=== PATIENT | male | born 2005 | race Caucasian/White ===

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

== ENCOUNTER 2024-11-10 08:22 | Outpatient (CLI) | payer OTHER, SELFPAY ==
--- NOTE | 2024-11-10 08:42 | US_ITS ---
PROCEDURE: NEEDLE PLACEMENT 11/10/2024 REASON FOR EXAM: Clinical concern for right acetabular labral tear, residual following prior injury. TECHNIQUE: Ultrasound-guided pre MRI right hip joint injection COMPARISON: Right hip and pelvis study 10/31/2024 FINDINGS: Procedure: Following informed consent, and using standard sterile technique, an ultrasound- guided pre MRI right hip joint injection was performed via an anterior approach. 2% lidocaine local anesthesia was followed by placement a 22 gauge spinal needle into the hip joint under sonographic guidance. Approximately 20 mL fluid consisting of 5 mL 1% lidocaine, 5 mL normal saline, 10 mL dilute Clariscan, was injected under sonographic guidance. No complication was encountered, in the patient left the department for MRI without significant complaint. US/Needle Placement IMPRESSION: Successful ultrasound-guided right hip joint pre MRI injection. MRI pending. Reading Location: [place] [id number]
--- OUTSIDE RECORDS SUMMARY | 2024-11-10 08:49 | XMS RPT_ITS | CCD ---
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 Reviewedyes Electronic Signatures: Myesha Mendoza (SUPV) (Signed 07-Jun-2021 22:54) Authored: Quick Triage, Risk Screens, Travel History, Chart Review, Scores, Past Medical History Mushtaq Casillas) (Signed 08-Jun-2021 00:38) Authored: Quick Triage, Chart Review Last Updated: 08-Jun-2021 00:38 by Mushtaq Casillas (RN) Normal [facility] Vital Signs Date Time Vital Sign Value Performing Clinician Facility 10-31-2024 14:59-0400 Body height 193.04 cm Danny Vidal MD Work Phone: [facility] 10-31-2024 14:59-0400 Body mass index (BMI) [Ratio] 20.5 kg/m2 Danny Vidal MD Work Phone: [facility] 10-31-2024 14:59-0400 Body weight 76.26 kg Danny Vidal MD Work Phone: [facility] 06-08-2021 03:02-0400 Diastolic blood pressure 80 mm[Hg] No Pcp Required [facility] 06-08-2021 03:02-0400 Heart rate 80 /min No Pcp Required [facility] 06-08-2021 03:02-0400 Respiratory rate 16 /min No Pcp Required [facility] 06-08-2021 03:02-0400 SaO2% (BldA) [Mass fraction] 99 % No Pcp Required [facility] 06-08-2021 03:02-0400 Systolic blood pressure 124 mm[Hg] No Pcp Required [facility] 06-08-2021 02:10-0400 Body temperature 97.88 [degF] No Pcp Required [facility] Encounters Encounter Date Encounter Type Care Provider Facility Start: 10-31-2024 End: 10-31-[address] Raman Gerard MD [facility] Start: 10-31-2024 End: 10-31-2024 ambulatory [facility] Start: 07-15-2024 End: 07-15-2024 ambulatory NONE NONE [facility] Start: 07-15-2024 Encounter for examin ation of blood pressure without abnormal findings NONE NONE [facility] Start: 07-12-2024 End: 07-12-2024 ambulatory NONE NONE [facility] Start: 04-19-2024 End: 04-19-2024 ambulatory NONE NONE [facility] Start: 06-12-2022 End: 03-23-2023 ambulatory [facility] Work Phone: Start: 06-12-2022 End: 06-12-2022 Discharged [facility] Start: 06-07-2021 End: 06-08-2021 Emergency department patient visit Ana Holliday [facility] Emergency 06 Procedures Date Procedure Procedure Detail Performing Clinician Start: 06-07-2021 End: 06-07-2021 EKG impression Ana Holliday Plan of Treatment Date Care Activity Detail Author Start: 10-31-2024 Plain x-ray of pelvi s and lower extremity HIP, UNI W/ Pelvis 2-3 [facility] Start: 10-31-2024 XR Pelvis and Hip [facility] Payers Date Payer Category Payer Self-pay 2024 Unknown [id number] 2022 Unknown [id number] 2004 Unknown [id number] 2004 Unknown [id number] 2004 Unknown [id number] 1973 Unknown [id number] 9 Unknown [facility] Self-pay [id number] Unknown [id number] Unknown [id number] Unknown [id number] Unknown [id number] Social History Date Type Detail Facility [facility] Tobacco smoking consumption unknown [facility] Start: 2004 Sex Assigned At Male [facility] Start: 10-31-2024 Tobacco smoking status NHIS Never smoked tobacco (finding) [facility] Discharge summary 06-12-2022 Note Date & Type Note Facility 06-12-2022 Discharge summary Note Date/Time June 12, 2022 4:43pm [facility] 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 Discharge Date: Please see the following information for a summary of their discharge status. Subjective: Patient reports that he feels that he is 98-99% better- [facility] Does still have some issues that pop up every now and then but can't pin point them % Improvement: 80 Objective/Function: Posture: fair Gait: no deviation noted. Jumping: no deviation noted. Palpation: tender origin on left hamstring. Strength: Core: fair minus, Hip: 4+/5 Knee: Right: Left Extn:60. Flexion: Left 38 Ankle: 5/5. Flex: HS: moderate, Gastroc: moderate Goal 1:: Patient will be I with HEP and progression Goal 2:: Patient will report no pain with recreational activitied Goal 3:: Patient will demo increase in strength by 10# Plan: Discharge to I HEP- encouraged compliance with HEP If there are questions or concerns regarding this patient's physical therapy, please feel free to call me at [phone]. Thank you for the referral of thispatient. Sincerely, Suzan Mejia, DPT Balance/Gait/Functional tests - Balance/Special Test Scores Lower Extremity Functional Score: 4 <Electronically signed by Suzan Mejia DPT> 06/12/22 1644 CC: CELE Gordillo; Danny Hwang ~ ELR Signed [facility] Work Phone: Evaluation note Note Date & Type Note Facility Evaluation note No assessment information availa ble [facility] Work Phone: Evaluation note Note Date & Type Note Facility Evaluation note Diagnosis Onset Date Resolution Right hip pain acute October 2:53pm [facility] Work Phone: Reason for referral (narrative) Note Date & Type Note Facility Reason for referral (narrative) No reason for referral information available [facility] Work Phone: Summary Purpose Family History No Family History Records FoundNo Family History Records FoundNo Family History Records FoundNo Family History Records Found Advance Directives No Advanced Directives Records FoundNo Advanced Directives Records FoundNo Advanced Directives Records FoundNo Advanced Directives Records Found Chief Complaint and Reason for Visit Chief Complaint L HAMSTRING RX HERE Chief Complaint Admit Date RIGHT GROIN October 31, 2024 2: 53pm RM 1 October 31, 2024 3: 01pm Reason for Visit Admit Date Right hip pain October 31, 2024 2: 53pm Additional Source Comments <item> Privacy Markings (unrecogniz ed section and content) Section Author: Arleen Moore PROHIBITION ON REDISCLOSURE OF CONFIDENTIAL INFORMATION This notice accompanies a disclosure of information concerning a client made to you with the consent of such client. (unrecognized sect ion and content) No Status Records FoundNo Status Records FoundNo Status Records FoundNo Status Records Found INFORMATION SOURCE (unrecogn ized section and content) DATE CREATED AUTHOR 06/18/2021 [facility] DATE CREATED AUTHOR AUTHOR'S ORGANIZ ATION 02/27/2022 [facility] DATE CREATED AUTHOR AUTHOR'S ORGANIZ ATION 07/16/2024 [facility] DATE CREATED AUTHOR AUTHOR'S ASHLEY ATION 11/01/2024 [facility] Care Teams (unrecognized sec tion and content) Team Status: Active Member Role Status Dates Danny VÁZQUEZ Primary Care Provider Active Team Status: Inactive Member Role Status Dates Danny VÁZQUEZ Primary Care Provider Active CELE Covarrubias Attending Provider, Referring Provi gail Active Team Status: Active Member Role/Relationship Status Dates Danny Vidal MD Attending Provider Active St art: October 31, 2024 Team Status: Inactive Member Role/Relationship Status Dates Dr. Raman Gerard MD Attending Provider Active S tart: October 31, 2024 End: October 31, 2024 Team Status: Inactive Member Role/Relationship Status Dates Danny Vidal MD Attending Provider Active St art: October 31, 2024 End: October 31, 2024 Goals (unrecognized section and content) Goals may be documented in a n alternate sectionGoals may be documented in an alternate sectionGoals may be documented in an alternate section FOR RECORDS PERTAINING TO PATIENTS WHO ARE OR HAVE BEEN ENROLLED IN A CHEMICAL DEPENDENCY/SUBSTANCEABUSE PROGRAM, SOME INFORMATION MAY BE OMITTED. This clinical summary was aggregated from multiple sources. Caution should be exercised in using it in the provision of clinical care. This summary normalizes information from multiple sources, and as a consequence, information in this document may materially change the coding, format and clinical context of patient data. In addition, data may be omitted in some cases. CLINICAL DECISIONS SHOULD BE BASED ON THE PRIMARY CLINICAL RECORDS. [facility] [employer] [facility]. provides no warranty or guarantee of the accuracy or completeness of information in this document.
--- NOTE | 2024-11-10 09:38 | MRI_ITS ---
PROCEDURE: LOWER EXT/JT ONLY/W CONTRAST 11/10/2024 REASON FOR EXAM: RULE OUT LABRUM TEAR TECHNIQUE: Right hip MR arthrogram COMPARISON: Right hip and pelvis study of 10/31/2024. FINDINGS: Intra-articular contrast material is present. No acetabular labral tear is seen. No evidence of femoral head osteonecrosis. No abnormal osseous signal is seen. No muscle signal changes are noted. No free or loculated fluid collection is seen. No significant arthritic process is evident. MRI/Lower Ext/Jt Only/W Contrast IMPRESSION: No right acetabular labral tear is seen. No significant abnormality is identified. Reading Location: [place] [id number]
== END 2024-11-10 23:59 | disposition home or self-care (01) ==
PROVIDERS: Referring Provider Orthopaedic Surgery Sports Medicine; Visit Provider Orthopaedic Surgery Sports Medicine
DX: M25.551 Pain in right hip (principal)
CPT/HCPCS: 20611; 73722; 76942